=== PATIENT | female | born 1980 | race African-American/Black ===

== ENCOUNTER → 2017-04-12 12:59 | Emergency (ER) | payer BC ==
[~2017-04-12 12:59] MED LIST: Iodixanol* (CONTRAST) 320 MG/ML 100 ML SDV IV ONE; Ketorolac INJ* 30 MG/ML 1 ML VIAL IV PUSH ONE; Ondansetron INJ* 2 MG/ML VIAL IV ONE
[2017-04-12 14:32] LABS: Add Diff/Slide Review? Slide Review Added; Comments Flag Yes; Hematocrit 42 % (35-47); Hemoglobin 14.1 g/dl (12.0-16.0); Mean Corpuscular HGB Conc 34 g/dl (31-36); Mean Corpuscular Hemoglobin 23 pg (27-31); Mean Corpuscular Volume 69 fL (80-97); Mean Platelet Volume 7 um3 (7.4-10.4); Red Blood Count 6.09 10^6/ul (4.0-5.4); Red Cell Distribution Width 17 % (10.5-15); White Blood Count 10.1 10^3/ul (3.5-10.8)
[2017-04-12 14:45] LABS: Albumin 4.1 g/dL (3.2-5.2); BUN/Creatinine Ratio 15.3 (8-20); C Reactive Protein 123.34 mg/L (< 5.00); Calcium 9.6 mg/dL (8.6-10.3); EGFR African American 117.9 (>60); EGFR Non-African American 91.7 (>60); Globulin 3.7 g/dL (2-4); Potassium 3.8 mmol/L (3.5-5.0); Total Bilirubin 0.4 mg/dL (0.2-1.0); Total Protein 7.8 g/dL (6.4-8.9)
[2017-04-12 14:57] LABS: Add Path Review? YES; Hypochromasia 1+; Microcytosis 1+; Target Cells 1+
[2017-04-12 17:52] LABS: Urine Bilirubin Negative (Negative); Urine Glucose 3+(>=500 mg/dL) (Negative); Urine Nitrite Negative (Negative)
--- NOTE | 2017-04-12 18:51 | RAD ---
INDICATION: Abdominal pain. Recent abdominoplasty COMPARISON: CT abdomen pelvis March 30, 2017 TECHNIQUE: Axial source images were obtained from the hemidiaphragms to the symphysis pubis following administration of oral and intravenous contrast. 120 mL Visipaque 320 was utilized. Coronal and sagittal reconstructed images were acquired. Lung bases: The lung bases are clear. Liver: The liver is normal in size. There are no masses. There is no ductal dilatation. Gallbladder: There are no calcified gallstones. There is no evidence of wall thickening or pericholecystic fluid. Spleen: The spleen is normal in size. There are no masses. Pancreas: There is no focal pancreatic mass or ductal dilatation. Adrenal glands: There is no evidence of adrenal mass. Kidneys: The kidneys are normal in size and position. There are prompt nephrograms and there is prompt excretion bilaterally. There are no renal parenchymal masses. There is no evidence of nephrolithiasis. Adenopathy: There is no evidence of adenopathy by size criteria. Fluid collections: There are no free or localized fluid collections. Vessels:There are no significant atherosclerotic changes involving the aorta. There is no focal aneurysm. The iliac vessels are normal in caliber. The IVC appears normal. GI tract: There are no acute CT bowel findings. There is no obstruction. The stomach and small bowel appear normal. The lower GI tract is normal. The cecum, ileocecal valve, and terminal ileum appear normal. The appendix is visualized and appear normal. Pelvic organs: The uterus and adnexa appear normal Bladder: There are no bladder masses. Abdominal and pelvic soft tissues: There are skin and subcutaneous changes compatible with recent abdominal surgery. There is now a localized fluid collection in the subcutaneous soft tissues of the right lateral abdominal/pelvic wall measuring 2.4 x 4.5 x 6.0 cm. This is compatible with postoperative hematoma or seroma. This has developed in the interval. There are additional areas of subcutaneous edema. Osseous structures: There are no acute osseous findings. Other: None IMPRESSION: NEW RIGHT LATERAL SUBCUTANEOUS HEMATOMA/SEROMA. NO ADDITIONAL SIGNIFICANT CHANGES
--- NOTE | 2017-04-12 18:55 | ED ---
Brad Peters Gabriel, scribed for Anabelle Irving MD on 04/12/17 at 1505 . Abdominal Pain/Female - HPI Summary HPI Summary: This patient is a 36 year old F presenting to [facility] with a chief complaint of ABD pain since the 04/04/17. The patient rates the pain 8/10 in severity. Patient reports a minor migraine, ABD distension, and an abnormal ABD bulge. Patient denies n/v/d. Pt states she had a tummy tuck in [place] on December 19 came home 16 days later. She had drainage tubes that resembled Caro catheters. The drain tubes began to pull and she developed E.coli. 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 The E.coli was local to the wound. Even when she had the drains removed at the end of December she was having pain specifically periumbilical pain. She saw her PCP for the pain and had a CT done a week ago, ordered by her PCP and done as an outpt, with the CT results results her PCP scheduled an appointment with a Dr. Ricci, plastic surgeon, but not until April 2017. On 04/08/17 she began having severe flank and rib pain and recently she has developed an abdominal bulge. Patient takes Jardianz for DM. She had a CT ABD/pelvis on 03/30/17 without oral or IV contrast that only showed inflammation of abd wall, and fluid inferior to umbilicus. - History of Current Complaint Chief Complaint: EDAbdPain Stated Complaint: ABD PAIN Time Seen by Provider: 04/12/17 14:53 Hx Obtained From: Patient, Medical Records Hx Last Menstrual Period: NOW ?: No Onset/Duration: Lasting Weeks - 04/04/17, Still Present Timing: Constant Severity Initially: Moderate Severity Currently: Moderate Pain Intensity: 8 Pain Scale Used: 0-10 Numeric Location: Diffuse, Umbilical Radiates: No Character: Dull Aggravating Factor(s): Nothing Alleviating Factor(s): Nothing Associated Signs and Symptoms: Positive: Negative - n/v/d, Other: - minor migraine, ABD distension, and an abnormal ABD bulge Allergies/Adverse Reactions: Allergies Allergy/AdvReac Type Severity Reaction Status Date / Time Oxycodone Allergy Itching Verified 10/30/15 18:50 almonds Allergy Swelling Uncoded 10/30/15 18:50 Of Face,Lips,& Throat PMH/Surg Hx/FS Hx/Imm Hx Previously Healthy: No Endocrine/Hematology History: Reports: Hx Diabetes Cardiovascular History: Denies: Hx Hypertension, Hx Myocardial Infarction Respiratory History: Denies: Hx Asthma Sensory History: Denies: Hx Legally Blind Opthamlomology History: Denies: Hx Cataracts - Surgical History Surgery Procedure, Year, and Place: 2004- knee surgery. 2009- mass removed in axilla areas bilateral. 2012 tonsils. 2017 bariatric surgery in [place] Infectious Disease History: No Infectious Disease History: Denies: Traveled Outside the [place] in Last 30 Days - Family History Known Family History: Positive: Hypertension, Diabetes Negative: Cardiac Disease, Renal Disease, Respiratory Disease - Social History Occupation: Employed Full-time Alcohol Use: Rare Hx Substance Use: No Substance Use Type: Reports: None Hx Tobacco Use: No Smoking Status (MU): Never Smoked Tobacco Review of Systems Negative: Fever Cardiovascular: Negative Respiratory: Negative Positive: Abdominal Pain, Other - ABD distension and an ABD bulge . Negative: Vomiting, Diarrhea, Nausea Genitourinary: Negative Positive: Headache - minor migraine All Other Systems Reviewed And Are Negative: Yes Physical Exam - Summary Physical Exam Summary: Appearance: Well-appearing, no pain distress, Well-nourished Skin: Warm, color reflects adequate perfusion Head: Normal Head/Face Eyes: Conjunctiva clear ENT: Normal appearance Neck: Supple Respiratory: Lungs clear, Normal breath sounds, no respiratory distress Cardio: RRR, No murmur, pulses normal, brisk capillary refill Abdomen: soft, nontender, Mons pubis is swollen but not fluctuant. Tender right lateral abd wall. No definite masses. BS present. Musculoskeletal: Strength Intact/ ROM intact Neuro: Alert, muscle tone normal,facial symmetry, speech normal, sensory/motor intact Triage Information Reviewed: Yes Vital Signs On Initial Exam: Initial Vitals Temp Pulse Resp BP Pulse Ox 97.8 F 119 20 138/90 99 04/12/17 13:03 04/12/17 13:03 04/12/17 13:03 04/12/17 13:03 04/12/17 13:03 Vital Signs Reviewed: Yes Diagnostics - Vital Signs Vital Signs Temp Pulse Resp BP Pulse Ox 04/12/17 13:03 97.8 F 119 20 138/90 99 - Laboratory Lab Results: Lab Results 04/12/17 04/12/17 04/12/17 Range/Units 14:08 14:08 14:08 WBC 10.1 (3.5-10.8) 10^3/ul RBC 6.09 H (4.0-5.4) 10^6/ul Hgb 14.1 (12.0-16.0) g/dl Hct 42 (35-47) % MCV 69 L (80-97) fL MCH 23 L (27-31) pg MCHC 34 (31-36) g/dl RDW 17 H (10.5-15) % Plt Count 258 (150-450) 10^3/ul MPV 7 L (7.4-10.4) um3 Neut % (Auto) 73.0 (38-83) % Lymph % (Auto) 20.3 L (25-47) % Sully % (Auto) 5.6 (1-9) % Eos % (Auto) 0.5 (0-6) % Baso % (Auto) 0.6 (0-2) % Absolute Neuts (auto) 7.3 (1.5-7.7) 10^3/ul Absolute Lymphs (auto) 2.0 (1.0-4.8) 10^3/ul Absolute Monos (auto) 0.6 (0-0.8) 10^3/ul Absolute Eos (auto) 0.1 (0-0.6) 10^3/ul Absolute Basos (auto) 0.1 (0-0.2) 10^3/ul Absolute Nucleated RBC 0.03 10^3/ul Nucleated RBC % 0.3 Normal RBC Morphology Not Reportable Hypochromasia 1+ Microcytosis 1+ Target Cells 1+ Hem Pathologist Commnt Pending INR (Anticoag Therapy) 0.94 (0.77-1.02) APTT 26.3 (26.0-36.3) seconds Sodium 135 (133-145) mmol/L Potassium 3.8 (3.5-5.0) mmol/L Chloride 102 (101-111) mmol/L Carbon Dioxide 27 (22-32) mmol/L Anion Gap 6 (2-11) mmol/L BUN 11 (6-24) mg/dL Creatinine 0.72 (0.51-0.95) mg/dL Est GFR ( Amer) 117.9 (>60) Est GFR (Non-Af Amer) 91.7 (>60) BUN/Creatinine Ratio 15.3 (8-20) Glucose 111 H (70-100) mg/dL Calcium 9.6 (8.6-10.3) mg/dL Total Bilirubin 0.40 (0.2-1.0) mg/dL AST 12 L (13-39) U/L ALT 13 (7-52) U/L Alkaline Phosphatase 52 (34-104) U/L C-Reactive Protein 123.34 H (< 5.00) mg/L Total Protein 7.8 (6.4-8.9) g/dL Albumin 4.1 (3.2-5.2) g/dL Globulin 3.7 (2-4) g/dL Albumin/Globulin Ratio 1.1 (1-3) Lipase 14 (11.0-82.0) U/L Beta HCG, Quant 0.80 mIU/mL Result Diagrams: 04/12/17 14:08 04/12/17 14:08 Lab Statement: Any lab studies that have been ordered have been reviewed, and results considered in the medical decision making process. - CT CT ABD/Pelvis CT Interpretation Completed By: Radiologist - NEW RIGHT LATERAL SUBCUTANEOUS HEMATOMA/SEROMA. NO ADDITIONAL SIGNIFICANT CHANGES ED physician has reviewed this radiology report. Re-Evaluation - Re-Evaluation First Eval Re-Evaluation Time: 19:10 Change: Unchanged - Patient is eating and rates her pain as 7/10. She also still has abd and flank tenderness. Abdominal Pain Fem Course/Dx - Diagnoses Differential Diagnosis: Positive: Bowel Obstruction, Diverticulitis, Other - abscess Provider Diagnoses: seroma/hematoma in right abd wall, S/P bariatric surgery - Provider Notifications Discussed Care Of Patient With: Vladimir Quahc Time Discussed With Above Provider: 19:10 Instructed by Provider To: Have Pt Call For Appt. Discharge - Discharge Plan Condition: Stable Disposition: HOME Prescriptions: HYDROcodone/ACETAMIN 5-325 MG* [[place] 5-325 TAB*] 1 tab PO Q4H PRN #20 tab MDD 6 PRN Reason: Pain Patient Education Materials: Acute Abdominal Pain (ED) Forms: *Work Release Referrals: Vladimir Quach MD [Medical Doctor] - (call in the am to set up an appointment in the next 1-2 days. ) Daisy PATTERSON,Rayna Da Silva [Primary Care Provider] - Additional Instructions: We have given you a copy of your CT report. We have spoken to Dr. Quach, general surgeon, [place]. He will see you in his office in follow up. Call the office first thing tomorrow morning to be seen in the next 1-[address] Quach does not want antibiotics for you at this time. Return to the ER if you have new or worsening symptoms. The documentation as recorded by the Brad bazan Gabriel accurately reflects the service I personally performed and the decisions made by me, Anabelle Irving MD.
[2017-04-12 20:31] VITALS: BP 126/79
== END | disposition home or self-care (01) ==
LOC: ED 12:59
DX: S30.1XXA Contusion of abdominal wall, initial encounter (principal); Z98.84 Bariatric surgery status; R10.9 Unspecified abdominal pain; E13.9 Other specified diabetes mellitus without complications; R51 Headache; X58.XXXA Exposure to other specified factors, initial encounter; Y93.9 Activity, unspecified; Y92.9 Unspecified place or not applicable
CPT/HCPCS: 36415; 74177; 80053; 81003; 83605; 83690; 84702; 85025; 85060; 85610; 85730; 86140; 99284; J1885; J2405; Q9967

== ENCOUNTER 2017-09-07 10:45 | Observation (INO) | payer BC ==
[2017-09-07] MEDS ORDERED: Clindamycin 900 MG IVPREMIX(* 900 MG/50 ML SDV IV ONE (11:30)
[2017-09-07] MEDS ORDERED: Scopolamine 1.5 mg* PATCH ONE (11:41)
[2017-09-07] MEDS ORDERED: Naproxen TAB* 250 MG ONE (11:42)
[2017-09-07] MEDS ORDERED: oxyCODONE SR TAB(*) 10 MG TAB.SR ONE (11:42)
[2017-09-07] MEDS ORDERED: LORazepam TAB(*) 1 MG ONE (11:42)
[2017-09-07] MEDS ORDERED: Ondansetron INJ* 2 MG/ML VIAL ONE (11:42)
[2017-09-07 11:44] LABS: ABS Basophils 0 10^3/ul (0-0.2); ABS Eosinophils 0 10^3/ul (0-0.6); ABS Lymphocytes 1.9 10^3/ul (1.0-4.8); ABS Monocytes 0.3 10^3/ul (0-0.8); ABS Neutrophils 2.9 10^3/ul (1.5-7.7); ABS Nucleated RBC 0 10^3/ul; Eosinophil % 0.9 % (0-6); Hematocrit 47 % (35-47); Lymphocyte % 36.4 % (25-47); Mean Corpuscular HGB Conc 34 g/dl (31-36); Mean Corpuscular Hemoglobin 25 pg (27-31); Mean Corpuscular Volume 74 fL (80-97); Mean Platelet Volume 7.6 um3 (7.4-10.4); Nucleated Red Blood Cells % 0.3; Platelet Count 264 10^3/ul (150-450); Red Blood Count 6.35 10^6/ul (4.0-5.4); Red Cell Distribution Width 16 % (10.5-15); White Blood Count 5.2 10^3/ul (3.5-10.8)
[2017-09-07 11:48] LABS: INR 0.89 (0.77-1.02)
[2017-09-07 11:58] LABS: EGFR Non-African American 66.2 (>60)
[2017-09-07] MEDS ORDERED: Lidocaine 2% JELLY* 6 ML JELLY TOPICAL ONE (12:30)
[2017-09-07] MEDS ORDERED: diPHENhydraMINE PO* 25 MG ONE (12:46)
[2017-09-07] MEDS ORDERED: Flumazenil* 0.1 MG/ML 5 ML MDV ONE (13:14)
[2017-09-07] MEDS ORDERED: Ketorolac INJ* 30 MG/ML 1 ML VIAL ONE ×2 (13:14→15:32)
[2017-09-07] MEDS ORDERED: fentaNYL* 50 MCG/ML 5 ML VIAL (250 MCG VIAL) ONE (13:14)
[2017-09-07] MEDS ORDERED: Midazolam* 1 MG/ML 10 ML VIAL (10 MG) ONE (13:14)
[2017-09-07] MEDS ORDERED: Naloxone* 0.4 MG/ML 1 ML VIAL ONE (13:14)
[2017-09-07] MEDS ORDERED: Iohexol 350 (CONTRAST) 200 ML MDV IV ONE (13:14)
[2017-09-07] MEDS ORDERED: Heparin 2 UNITS/ML IVPREMIX* 2,000 ML IV ONE (13:15)
[2017-09-07] MEDS ORDERED: Lidocaine 1% INJ* 10 MG/ML 30 ML SDV ONE (13:15)
[2017-09-07] MEDS ORDERED: nitroGLYCERIN DRIP* 25,000 MCG/250 ML BTL ONE (14:12)
[2017-09-07] MEDS ORDERED: fentaNYL* 50 MCG/ML 2 ML VIAL (100 MCG VIAL) ONE ×2 (15:20→15:46)
[2017-09-07] MEDS ORDERED: HYDROmorphone PCA* 20 MG/20 ML PCA.SYRING ONE (16:03)
[2017-09-07] MEDS ORDERED: HYDROmorphone INJ* 1 MG/ML CARPUJECT SYRINGE ONE (16:04)
[2017-09-07] MEDS ORDERED: LORazepam INJ* 2 MG/ML 1 ML VIAL IV PUSH PRN ×2 (16:22→21:06)
[2017-09-07] MEDS ORDERED: FAMCICLOVIR 125 MG PO SCH (17:00)
[2017-09-07] MEDS ORDERED: HYDROmorphone PCA* 20 MG/20 ML PCA.SYRING PCA SCH (17:00)
[2017-09-07] MEDS ORDERED: HYDROmorphone INJ* 2 MG/ML CARPUJECT SYRINGE ONE (17:01)
[2017-09-07] MEDS ORDERED: HYDROmorphone INJ* 2 MG/ML CARPUJECT SYRINGE IV SLOW PU PRN (17:02)
--- NOTE | 2017-09-07 17:33 | RAD ---
CPT II Codes: G9500 Procedure(s) performed: * Pelvic arteriogram including the lower abdominal aorta, bilateral iliac arteries including the proximal portions of the superficial femoral arteries and femoral profundi. * Catheter arteriography of the bilateral uterine arteries. * Catheter embolization of the bilateral uterine arteries. Date of service: September 07, 2017 Indication for procedure: Pelvic pain and heavy menstrual bleeding the presence of multiple uterine fibroids Comparison: MR pelvis dated July 12, 2017 Contrast: 200 mL Omnipaque 300 Fluoroscopy Time: 33.1 minutes Vessels Accessed: Percutaneous access was obtained with ultrasound guidance in the right common femoral artery in the retrograde direction towards the heart. Catheter arteriography was performed with the catheter tip in the following arteries: Right external iliac artery, Aorta, Bilateral common iliac arteries, Bilateral internal iliac arteries and Bilateral uterine arteries. Anesthesia: Conscious sedation with IV Fentanyl and Versed as well as local 1% lidocaine injected locally at the arteriotomy site. Conscious sedation time: Timeout: 1340 hours Case end: 1555 hours Total conscious sedation time: 2 hours and 15 minutes Additional medications: * 500 mcg IA nitroglycerin injected intermittently throughout the course of the procedure to alleviate arterial spasm. * Intra-arterial Toradol, 15 mg injected into each uterine artery, for a total of 30 mg intra-arterial. * Intravenous Toradol, 30 mg. * Prior to the procedure the patient received: Ativan 1 mg p.o. Naproxen sodium 250 mg p.o. OxyContin 10 mg p.o. Scopolamine patch 1.5 mg transdermal applied to the mastoid process. Zofran 4 mg IV Antibiotic prophylaxis was provided by Clindamycin 900 mg IV PROCEDURE NOTE AND INTRAPROCEDURAL IMAGING FINDINGS: Immediately prior to the procedure the patient signed consent after thoroughly discussing all risks and benefits. The patient was positioned on the fluoroscopy table in the supine position and the bilateral groins were shaved, prepped and draped in standard sterile fashion. Using fluoroscopic imaging the location of the right common femoral head was marked externally with a skin marker on the patient's groin. Utilizing sonographic guidance and palpation the right common femoral artery was cannulated overlying the right femoral head with an 18-gauge needle. An ultrasound image was saved. A 0.035 inch Bentson wire was slowly and smoothly advanced to the aortic bifurcation under fluoroscopic imaging. No buckling of the wire was visualized to indicate dissection. Over the wire a 5 Niuean sidearm sheath was advanced over the wire under fluoroscopic control until the tip terminating at the right external iliac artery. Injection into the side arm of the access sheath was performed in the left anterior oblique projection demonstrating appropriate access in the right common femoral artery, above the femoral bifurcation but below the branch point of the inferior epigastric artery. Utilizing a 0.035" wire and 5-Niuean C2 catheter the contralateral left common iliac artery was accessed. The wire was advanced under fluoroscopic control to the proximal left superficial femoral artery. The C2 catheter was removed and over the wire a 5 Niuean Merit Impress catheter was advanced over the iliac bifurcation and the reverse curve was formed in the lower abdominal aorta. Utilizing the reverse curve catheter and the wire the ipsilateral right common iliac artery was selected. With the tip of the catheter in the proximal most portion of the right internal iliac artery, angiography was performed to detail the branches of the right internal iliac artery and to locate the ostium of the right uterine artery. Arteriograms in multiple oblique projections were performed to best discern the branch point of the uterine artery. Once the uterine artery was identified, a microcatheter and microwire were advanced into the parent catheter and, in conjunction with contrast angiography, the uterine artery was identified and selected with the microcatheter and wire system. Prior to embolization, contrast injection into the horizontal portion of the uterine artery demonstrated no large, obvious collateral blood flow to the ovary or a definite cervicovaginal branch descending inferiorly. Intra-arterial nitroglycerin was injected intermittently to alleviate arterial spasm. Under fluoroscopic control approximately 2 vials Terumo [place] Pearls 600 microns and 1 vial Terumo [place] Peals 800 microns were slowly injected into the right uterine artery to near complete stasis. Towards the end of embolization 18 mg of Toradol was injected intra-arterially. The microcatheter was pulled back into the more proximal descending portion of the uterine artery and contrast angiography depicted near complete stasis of the uterine artery. The microcatheter and microwire were removed. Contrast arteriography through the 5-Niuean catheter in the right internal iliac artery demonstrated patency and brisk flow through all branches of the internal iliac artery with the exception of the right uterine artery which demonstrates near complete stasis. The 0.035" wire was reinserted into the 5-Niuean catheter and the system was utilized to access the contralateral left internal iliac artery. With the tip of the 5 Niuean Merit Impress catheter in the proximal most portion of the left internal iliac artery, angiography was performed to detail the branches of the left internal iliac artery and to locate the ostium of the left uterine artery. Arteriograms in multiple oblique projections were performed to best discern the branch point of the uterine artery. Once the uterine artery was identified, the microcatheter and microwire were advanced into the parent catheter and, in conjunction with contrast angiography, the uterine artery was identified and selected with the microcatheter and wire system. Prior to embolization, contrast injection into the horizontal portion of the left uterine artery demonstrated no large, obvious collateral blood flow to the ovary or a definite cervicovaginal branch descending inferiorly. Intra-arterial nitroglycerin was injected intermittently to alleviate arterial spasm. Under fluoroscopic control approximately 1 vial Terumo [place] Pearls 600 microns, 1 vial Embospheres 500-700 um and 1 vial Embospheres 700-900 um were slowly injected into the left uterine artery to near complete stasis. Towards the end of embolization 12 mg of Toradol was injected intra-arterially. The microcatheter was pulled back into the more proximal descending portion of the uterine artery and contrast angiography depicted near complete stasis of the uterine artery. The microcatheter and microwire were removed. Contrast arteriography through the 5-Niuean catheter in the left internal iliac artery demonstrated patency and brisk flow through all branches of the internal iliac artery with the exception of the left uterine artery which demonstrates near complete stasis. The 5-Niuean catheter and 0.035" wire were utilized to access the left external iliac artery which allowed a safe removal of the 5-Niuean Impress catheter. The wire was then removed from the sheath. The access sheath was removed and pressure was held at the common femoral arteriotomy for approximately 15 minutes. There were no signs of bleeding at the right groin access site and the site was dressed with sterile gauze and Tegaderm. The patient tolerated the procedure well and was transferred to the short stay recovery unit in stable condition for routine overnight observation and pain and nausea control. SUMMARY OF PROCEDURE, IMAGING FINDINGS AND INTERVENTIONS PERFORMED: 1. Diagnostic studies performed: * Arterial access was obtained at the right common femoral artery in the retrograde direction (i.e. towards the heart) with ultrasound guidance. A sonographic image was recorded. * Diagnostic catheter angiography (necessary to perform the appropriate interventions) was performed with the catheter tip in the right external iliac artery, aorta, bilateral common iliac arteries, bilateral internal iliac arteries and bilateral uterine arteries. * Catheter arteriography was performed of the abdominal aorta, bilateral iliac arterial system and specifically the bilateral uterine arteries. 2. Interpretation of diagnostic studies performed: * Left greater than right hypertrophied uterine arteries providing flow to the patient's enlarged fibroid uterus. 3. Surgical interventions performed: * Near stasis embolization of the bilateral uterine arteries utilizing: * Right Uterine Artery: 2 vials Terumo [place] Pearls 600 microns 1 vial Terumo [place] Pearls 800 microns. * Left Uterine Artery: 1 vial Terumo [place] Pearls 600 microns, 1 vial Embospheres 500-700 um and 1 vial Embospheres 700-900 um. 4. Interpretation of interventions performed: * Final arteriography demonstrated near complete stasis of the bilateral uterine arteries.. PLAN: 1. The patient will be admitted to short stay surgical unit for routine overnight observation including pain and nausea control. 2. Outpatient clinical and imaging follow-up according to the Interventional Radiology protocol.
--- NOTE | 2017-09-07 18:15 | PN ---
Progress Note - Progress Note Date of Service: 09/07/17 SOAP: Subjective: Reports pain is 4/10, but as bad as 9/10 sometimes. Clear yellow urine in Caro bag Denies nausea, no emesis. Wants to eat. Objective: Selected Entries 09/07/17 17:17 Pulse Rate 67 Heart Rate 67 Respiratory 12 Rate Blood Pressure 138/79 (mmHg) Blood Pressure 118 Mean O2 Sat by Pulse 99 Oximetry NAD, Somnolent, but arousable to voice Abdomen is soft, but tender to deep palpation over the suprapubic area Right groin is soft, nontender Dressing is CDI 2+ pulses at right BATCHMAKER, pop, DPA and FIREWALL ENGINEER RLE is neuromuscular intact Assessment: 37 YOF s/p Uterine Artery Embolization with nausea well controlled and pain reasonably controlled. Plan: 1. Standard post [place] Interventional Radiology protocol with the following additions: Add Dilaudid 1 mg IV Q 4 hours PRN for breakthrough pain. Add Ativan 0.5 mg IV Q 8 hours PRN anxiety. 2. Diet, advance slowly. 3. Head of bed may come up 30 degrees during bedrest periods which ends at 2000 hours.
[2017-09-07] MEDS ORDERED: LORazepam INJ* 2 MG/ML 1 ML VIAL ONE (21:10)
[2017-09-07] MEDS: Ketorolac INJ* 15 MG/ML 1 ML VIAL IV PUSH SCH (21:43)
[2017-09-07] MEDS: Ondansetron 40 MG VIAL* 2 MG/ML 20 ML VIAL IV SCH (21:43)
--- NOTE | 2017-09-08 01:05 | HP ---
CC: Dr. Juan Godoy; Dr. Benjy Mercedes * HISTORY AND PHYSICAL: DATE OF ADMISSION: 09/07/17 PRIMARY CARE PROVIDER: Dr. Hoover. (Dr. Benjy Mercedes manages her DM only) ATTENDING PHYSICIAN: Dr. Hi Valdez * (dictated by Melissa Osorio NP) . CHIEF COMPLAINT: Menorrhagia. HISTORY OF PRESENT ILLNESS: Ms. Simon is a 37-year-old female with past medical history significant for diabetes mellitus type 2 and known uterine fibroids, who was referred to Interventional Radiology for evaluation of her symptoms of multiple uterine fibroids. The patient reports severe menstrual pain beginning as a child in middle school with heavy bleeding. During her adult life, she was taking oral contraceptive pills to minimize the pain and bleeding associated with her menses, but over the last year that has become ineffective. The patient was finding that even with a double dose of her oral contraceptive pills that she was having minimum relief of her symptoms since March 2017. She was having significant pelvic pain the week of her menses with lesser pain throughout the month. The patient was taking 800 mg of Motrin 1 to 2 times daily with some relief of her pain. The patient reported passing clots the size of grapes with bleeding lasting up to 2 weeks needing to change a 12-hour menstrual pad every 2 hours including overnight. She was also reporting dyspareunia. She denied any urinary bladder or bowel symptoms. Due to all of these symptoms, she was referred to Dr. Godoy for possible uterine fibroid embolization. The patient presented to the hospital today for an elective uterine fibroid embolization with Dr. Juan Godoy. She states that leading up to her procedure today, she has been in her usual state of health. She denies any fever , chills, chest pain, shortness of breath, nausea, vomiting, diarrhea, urinary symptoms. The hospitalists were asked to admit the patient post uterine fibroid embolization. PAST MEDICAL HISTORY: 1. Diabetes mellitus. 2. Uterine fibroids. PAST SURGICAL HISTORY: 1. Status post knee surgery in 2004. 2. Status post tonsillectomy in 2012. 3. Status post excision of a lipoma bilateral axillae in 2009. 4. Status post abdominoplasty in 2016. HOME MEDICATIONS: Include: 1. Bupropion ER 100 mg oral daily. 2. Ogestrel 0.5/50 mg/mcg 2 tablets oral daily, the patient stopped taking on 09/02/17. 3. Jardiance 100 mg oral daily. 4. Belviq XR 20 mg oral daily. 5. Famciclovir 250 mg oral daily, increase to 4 tablets daily for outbreak. ALLERGIES: OXYCODONE causes itching. FAMILY HISTORY: The patient's mother has a history of coronary artery disease, diabetes mellitus. She denies any family history of cancer. SOCIAL HISTORY: The patient denies tobacco use. She rarely drinks alcohol. Denies recreational drug use. Her mother, Tereza Coleman, will be her surrogate decision maker in the event she is unable to make decisions for herself. REVIEW OF SYSTEMS: I performed an 11-point review of systems. All the pertinent positives and negatives are mentioned in the history of present illness. The remaining review of systems are negative. PHYSICAL EXAMINATION GENERAL APPEARANCE: The patient is alert, pleasant and appears to be in no acute distress. VITAL SIGNS: Temperature 97.5, heart rate 81, respiratory rate 15, O2 sat 97% on room air, blood pressure 155/92. HEENT: Normocephalic, atraumatic. Pupils are equal and reactive to light. Extraocular movements are intact. RESPIRATORY: There is no accessory muscle use. The lungs are clear to auscultation bilaterally. CARDIOVASCULAR: Regular rate and rhythm. S1 and S2 present. There are no murmurs, rubs, or gallops heard. ABDOMEN: Soft, nontender, and nondistended. There are bowel sounds present x4. EXTREMITIES: There is no lower extremity edema. DP and PT pulses are 2+ and symmetric. MUSCULOSKELETAL: There is no clubbing or cyanosis noted. The patient exhibits good strength in all extremities. NEUROLOGICAL: The patient is alert and oriented x4, but drowsy. Cranial nerves II through XII are grossly intact. PSYCHOLOGICAL: The patient is calm and cooperative. SKIN: There are no rashes or abnormalities seen. DIAGNOSTIC STUDIES/LABORATORY DATA: Sodium 137, potassium 3.9, chloride 104, CO2 of 25, BUN 15, creatinine 0.95, glucose 95. White blood cell count 5.2, hemoglobin 16.0, hematocrit 47, platelet count 264. IMPRESSION: Ms. Simon is a 37-year-old female with past medical history significant for diabetes mellitus type 2 and uterine fibroids, who presented to the hospital today for an elective uterine fibroid embolization with Dr. Juan Godoy. She will be admitted as an observation status post uterine fibroid embolization. ASSESSMENT/PLAN: 1. Uterine fibroids. The patient is status post uterine fibroid embolization and the patient will have management per Dr. Godoy. She will have pain control including a SHOCK ABSORPTION FLOOR LAYER and breakthrough intravenous Dilaudid in addition to a Caro catheter and bedrest until 8 p.m. tonight at which time she can get up and ambulate and her Caro catheter can be removed. 2. Diabetes mellitus. We are going to hold the patient's Jardiance while she is in the hospital. I am going to follow her glucoses and start lispro if she has elevated glucoses. She will be consistent carbohydrate diet. 3. Fluids, electrolytes and nutrition. The patient will have LR at 200 mL an hour overnight and she will be on a consistent carbohydrate diet. 4. Code status. Full code. 5. DVT prophylaxis. She is low risk and will have SCDs until she is ambulating and then she will be encouraged to ambulate. 6. Disposition. Observation. TIME SPENT: Time for this admission was approximately 60 minutes, greater than half of that was spent [id number] with the patient discussing medications, past medical history, the events leading up to her arrival today, and performing a physical examination. The case has been reviewed with the attending, Dr. Valdez, who agrees with the plan of care. Reviewed by VIRA THOMPSON 09/09/17 2109 [id number]/[facility] #: [id number] AWAIS
[2017-09-08] MEDS: Ondansetron 40 MG VIAL* 2 MG/ML 20 ML VIAL IV SCH (04:02)
[2017-09-08] MEDS: Ketorolac INJ* 15 MG/ML 1 ML VIAL IV PUSH SCH (04:02)
--- NOTE | 2017-09-08 08:22 | PN ---
Progress Note - Progress Note Date of Service: 09/08/17 SOAP: Subjective: Episodes of 8/10 pain overnight, but currently controlled 2/10. Reports +emesis overnight, but no nausea right now. Wants breakfast. + ambulating to bathroom for +void Objective: Selected Entries 09/08/17 07:27 Temperature 97.9 F Temperature Oral Source Pulse Rate 93 Respiratory 16 Rate Blood Pressure 121/80 (mmHg) Blood Pressure 90 Mean O2 Sat by Pulse 98 Oximetry NAD, Somnolent, but arousable to voice Abdomen is soft, tender to palpation over low midline pelvis Right groin is soft and nontender Dressing is CDI 2+ pulses DRAFTER DIRECTIONAL SURVEY, pop, DPA and BASE PLY HAND RLE neuromuscular intact grossly Assessment: 37 YOF POD #1 s/p Uterine Fibroid Embolization with episode of emesis overnight , but nausea and pain are currently controlled. Emesis likely secondary to eating too much, too quickly (patient ate meatloaf and mashed potatoes). Plan: 1. Transition IV to PO pharmacotherapy. 2. D/C IVF. 3. Ambulate with assistance every 2 hours. 4. Patient advised to advance diet slowly.
[2017-09-08] MEDS ORDERED: HYDROcodone/ACETAMIN 5-325 MG* 1 TAB PO PRN (08:25)
[2017-09-08] MEDS ORDERED: buPROPion SR TAB.SR* 100 MG PO SCH (09:00)
[2017-09-08] MEDS: Ketorolac TAB * 10 MG TAB PO SCH ×2 (09:11→14:59)
[2017-09-08] MEDS: Prochlorperazine TAB* 10 MG PO SCH ×3 (09:11→14:59)
--- NOTE | 2017-09-08 12:52 | PN ---
Progress Note - Progress Note Date of Service: 09/08/17 SOAP: Subjective: Patient sleeping quietly when I arrived. Pain "comes and goes", but is 2/10 right now. No emesis since last night. Ate light breakfast without issue. No nausea. Tolerating pills. Has ambulated several times. Light vaginal spotting. Objective: Selected Entries 09/08/17 09/08/17 09/08/17 07:27 08:00 11:38 Temperature 97.9 F Temperature Oral Source Pulse Rate 93 Respiratory 16 Rate Blood Pressure 121/80 (mmHg) Blood Pressure 90 Mean O2 Sat by Pulse 97 Oximetry Groins is soft, NT. Dressing CDI Abdomen soft, but tender to deep palpation Assessment: 37 YOF POD #1 s/p Uterine Fibroid Embolization with pain and nausea well controlled. Plan: 1. Anticipate discharge to home tonight when her boyfriend is due to arrive around 9pm. 2. Routine Interventional Radiology follow up will include RN clinic follow up telephone calls 09/11/17 and 09/16/17. Follow up in the IR clinic in 6 weeks and 6 months. 3. Outpatient Rx regimen will include: Toradol 10 mg PO Q 6 hours x 3 days, dispense #15, 1 refill AFTER 3 days of Toradol, start Ibuprofen 600 mg PO every 6 hours x 3 days (DO NOT COMBINE IBUPROFEN AND TORADOL) [place] 5/325 take 1 or 2 tablets PO Q 6 hours PRN x 5 days, dispense #30 (thirty), no refills Ativan 1 mg PO Q 8 hours PRN x 5 days, dispense #20 (twenty) Compazine 10 mg PO Q 6 hours x 5 days, dispense #30, 1 refill Scopoloamine 1.5 mg TD patch: on the morning of Monday, replace current patch with new patch and wear x 3 days 4. Patient advised to purchase laxative tea (E.g. Smooth Move) and drink one cup daily x 1 week to avoid constipation. (Dr. Godoy helped patient text her boyfriend to specifically cloth picker a box of tea on his way to the hospital).
[2017-09-08 13:51] VITALS: BP 120/83
--- NOTE | 2017-09-08 16:48 | PN ---
Subjective Date of Service: 09/08/17 Interval History: Patient seen and examined at bedside. Denies fever, chills, shortness of breath , chest discomfort, N/V/D. Pt states that she has a significant amount of abdominal cramping, but would like to go home today. She reports light vaginal bleeding. Family History: Unchanged from Admission Social History: Unchanged from Admission Past Medical History: Unchanged from Admission Objective Active Medications: Hydrocodone Bitart/Acetaminophen (Sutton 5-325 Tab*) 2 tab PO Q6H PRN Reason: PAIN Bupropion HCl (Wellbutrin Sr Tab*) 100 mg PO DAILY DERRICK Famciclovir (Famvir Tab(Nf)) 250 mg PO .SEE INSTRUCTIONS DERRICK Hydromorphone HCl (Dilaudid Inj*) 1 mg IV SLOW PU Q4H PRN Reason: PAIN - SEVERE Ketorolac Tromethamine (Toradol Tab *) 10 mg PO Q6H [facility] Stop: 09/11/17 08:59 Lorazepam (Ativan Inj*) 1 mg IV PUSH Q8H PRN Reason: ANXIETY Prochlorperazine (Compazine Tab*) 10 mg PO Q6HR [facility] Stop: 09/13/17 08:59 Vital Signs - 8 hr 09/08/17 09/08/17 09/08/17 08:52 11:15 11:38 Temperature 98.0 F Pulse Rate 90 Respiratory 16 17 16 Rate Blood Pressure 120/83 (mmHg) O2 Sat by Pulse 100 Oximetry Oxygen Devices in Use Now: None, Nasal Cannula Appearance: NAD, laying in bed Ears/Nose/Mouth/Throat: Mucous Membranes Moist Respiratory: Symmetrical Chest Expansion and Respiratory Effort, Clear to Auscultation Cardiovascular: NL Sounds; No Murmurs; No JVD, RRR Abdominal: NL Sounds; No Tenderness; No Distention Extremities: No Edema Skin: No Rash or Ulcers Neurological: Alert and Oriented x 3, NL Muscle Strength and Tone Lines/Tubes/Other Access: Clean, Dry and Intact Peripheral IV - site benign Nutrition: Taking PO's Result Diagrams: 09/07/17 11:15 09/07/17 11:15 Assess/Plan/Problems-Billing Assessment: Ms. Jones is a 37 yo female with PMH significant for DM and uterine fibroids who underwent an elective UFE with Dr. Godoy. - Patient Problems (1) Uterine fibroid Code(s): D25.9 - LEIOMYOMA OF UTERUS, UNSPECIFIED SNOMED Code(s): 85494775 Comment: - S/P UFE, POD #1 - Continues to have pain, but requesting to go home - Plan for pain management at home (2) Diabetes Code(s): E11.9 - TYPE 2 DIABETES MELLITUS WITHOUT COMPLICATIONS SNOMED Code(s) : 88293321 Comment: - Glucose 80-150's - Continue home medications (3) DVT prophylaxis Code(s): VWL6034 - SNOMED Code(s): 874740460 (4) Full code status Code(s): Z78.9 - OTHER SPECIFIED HEALTH STATUS SNOMED Code(s): 093526732 Status and Disposition: OBV. Stable for discharge to home today.
--- NOTE | 2017-09-09 06:59 | DS ---
CC: Dr. Juan Godoy; Dr. Benjy Mercedes * DISCHARGE SUMMARY: DATE OF ADMISSION: 09/07/17 DATE OF DISCHARGE: 09/08/17 ATTENDING PHYSICIAN: Dr. Hi Valdez * (dictated by Melissa Osorio NP) . PRIMARY CARE PROVIDER: Dr. Benjy Mercedes. PRIMARY DIAGNOSIS: Uterine fibroids, status post uterine fibroid embolization. SECONDARY DIAGNOSIS: Diabetes. CONSULTATIONS WHILE IN THE HOSPITAL: Dr. Juan Godoy. PROCEDURES WHILE IN THE HOSPITAL: Status post uterine fibroid embolization on 09/[address] Juan Godoy. DISCHARGE MEDICATIONS: [place] Medications: 1. Toradol 10 mg oral every 6 hours for 3 days. 2. Ibuprofen 600 mg oral every 6 hours for 3 days after the 3 days of Toradol. 3. Com[place] 5/325 one or two tablets oral every 6 hours as needed for pain for 5 days. 4. Ativan 1 mg oral every 8 hours as needed for anxiety. 5. Compazine 10 mg oral every 6 hours for 5 days. 6. Scopolamine patch 1.5 mg patch, replace current patch on 09/10/17 and wear for 3 days. 7. Smooth Move laxative tea drink 1 cup daily for 1 week. Continued Home Medications: 1. Jardiance 10 mg oral daily. 2. Famvir 250 mg oral daily, increase to 4 tablets daily with outbreak. 3. Belviq XR 20 mg oral daily. 4. Wellbutrin SR 100 mg oral daily. Medications discussed with provider: Jad. HISTORY OF PRESENT ILLNESS: Ms. Simon is a 37-year-old female with past medical history significant for diabetes and uterine fibroids who presented to the hospital for an elective uterine fibroid embolization with Dr. Godoy on . The patient underwent a successful uterine fibroid embolization on 09/07 and spent a night overnight. Patient continued to have pain and some nausea but is feeling up to going home today and she has had an uneventful recovery. Ms. Simon is stable for discharge to home today. Vital signs are as follows : Temperature 98, heart rate 90, respiratory rate 17, O2 sat 100% on room air, blood pressure 120/83. DISCHARGE PLAN: Ms. Simon will be discharged to home. Activity as tolerated. She will be on a regular diet. As far as pain control, she will be on Toradol 10 mg oral every 6 hours for 3 days followed by ibuprofen 600 mg oral every 6 hours for 3 days. She has been instructed to not combine ibuprofen and Toradol. She will be continued on [place] 5/325 one or two tablets oral every 6 hours as needed for pain for 5 days. She will have Ativan 1 mg oral every 8 hours as needed for anxiety. I-STOP was checked with reference number [id number]. She will have Compazine 10 mg oral every 6 hours for 5 days and scopolamine patch in place and she will replace the current patch on Monday and replace it with a new and wear it for 3 days. She has been asked to drink Smooth Move tea 1 cup daily for one week to avoid constipation. She should follow up with her primary care provider as needed. She has been continued on her other usual home medications. She will receive followup radiology calls from nurse on 09/11/17 and Monday09/16/17. She will then have to follow up with Dr. Godoy in 6 weeks and 6 months. She has been provided post uterine fibroid embolization specific instructions also. She has been asked to return to the emergency room for any chest pain, shortness of breath. She has been asked to call Dr. Godoy or her hide house supervisor for any foul smelling vaginal discharge especially if it is accompanied by fever, chills, pelvic pain. She has been asked to return to the emergency room for any chest pain, shortness of breath. This is a summarized report of a complex medical history and hospital stay. For further details, please see the entire medical record. BARTOLO SPENT: Time for this discharge was approximately 50 minutes, greater than half of that was spent with the patient, discussing discharge plans and instructions. CONDITION ON DISCHARGE: Stable. Reviewed by VIRA THOMPSON 09/09/17 2103 [id number]/[facility] #: [id number] AWAIS
== END 2017-09-08 18:10 | disposition home or self-care (01) ==
LOC: CHICATH 10:45 → SSU 16:32
PROVIDERS: ADMIT Radiology Diagnostic Radiology; ATTEND Internal Medicine
DX: D25.9 Leiomyoma of uterus, unspecified (principal); E11.9 Type 2 diabetes mellitus without complications; N92.0 Excessive and frequent menstruation with regular cycle
CPT/HCPCS: 36415; 37243; 75736; 76937; 80048; 84702; 85025; 85610; 99156; 99157; A9270-GY; C1769; C1884; C1887; G0378; J1170; J1644; J1885; J2060; J2250; J2310; J2405; J3010; Q0164

== ENCOUNTER 2019-06-10 18:52 | Emergency (ER) | payer BC ==
--- OUTSIDE RECORDS SUMMARY | 2019-06-10 18:59 | XMS REPORT | Continuity of Care Document ---
:1980 External Reference #:[id number] Author Name Adeline Ortega M.D. (transmitted by agent of provider Adeline Antunez ) Address [address] [place] [address] [place] [address] Care Team Providers Name Role Phone Benjy Mercedes MD - Endocrinology, Care Team Information [employer] [phone] Diabetes & Metabolism Problems Active Problems Provider Date Uterine leiomyoma Juan Godoy M.D. Onset: 06/21/2017 Premenopausal menorrhagia Juan Godoy M.D. Onset: 11/08/2017 Social History Type Date Description Comments Sex Unknown Tobacco Use Start: Unknown Never Smoked Cigarettes Smoking Status Reviewed: 05/16/19 Never Smoked Cigarettes ETOH Use Rarely consumes alcohol Tobacco Use Start: Unknown Patient has never smoked Recreational Drug Use Denies Drug Use Exercise Type/Frequency Exercises regularly gym 4-5 days a week Allergies, Adverse Reactions, Alerts Active Allergies Reaction Severity Comments Date Oxycodone itching 04/13/2017 Medications Active Medications SIG Qnty Indications Ordering Date Provider Modafinil 1 tab in the 30tabs Radha Zari, 11/05/2018 100mg Tablets morning, pls read leaflet Mandibular please fabricate Adeline 11/05/2018 Advancement Device mandibular advance MAURI Talamantes device for sleep Device apnea Ciprofloxacin HCL 1 tab by mouth 6tabs Z71.9 David D. 09/13/2018 500mg twice a day if Heena Noble Tablets needed for diarrhea Atovaquone-Proguanil 1 tab by mouth 30tabs Z71.9 David D. 09/13/2018 HCL daily, 2 days Heena Noble 250-100mg Tablets before trip, each day there, 7 days after return Famciclovir 1 daily, increase Unknown 250mg to 4 tabs daily Tablets for outbreak Fluoxetine HCL 1 by mouth every Unknown 40mg day Capsules Medications Administered in Office Medication SIG Qnty Indications Ordering Provider Date Depomedrol 40MG Stan Darling MD 08/09/2018 Injection Immunizations CPT Code Status Date Vaccine Lot # [id number] Given 09/13/2018 Typhoid Vaccine [id number] Given 09/13/2018 Rabies Vaccine Intramuscular [id number] Given 09/13/2018 Hepatitis A Vaccine Adult Dosage [id number] Vital Signs Date Vital Result Comment 05/16/2019 8:59am Height 70 inches 5'10" Heart Rate 102 /min BP Systolic 142 mmHg BP Diastolic 82 mmHg Respiratory Rate 18 /min Pain Level 10 O2 % BldC Oximetry 98 % 10/02/2018 12:45pm Height 70 inches 5'10" Weight 206.00 lb per pt, declined weight Heart Rate 92 /min BP Systolic Sitting 128 mmHg Lue large cuff BP Diastolic Sitting 98 mmHg Lue large cuff Respiratory Rate 18 /min O2 % BldC Oximetry 97 % On Ra BMI (Body Mass Index) 29.6 kg/m2 Results Description No Information Available Procedures Date Code Description Status 05/16/2019 Injection, Carpal Tunnel Completed Medical Devices Description No Information Available Encounters Description No Information Available Assessments Date Code Description Provider 05/16/2019 G56.01 Carpal tunnel syndrome, right upper limb Adeline Ortega M.D. 05/16/2019 G56.02 Carpal tunnel syndrome, left upper limb Adeline Ortega M.D. Plan of Treatment 05/16/2019 - Adeline Ortega M.D.G56.01 Carpal tunnel syndrome, right upper limbFollow up:Follow up: after testing is rpitequofB19.02 Carpal tunnel syndrome, left upper limbNew Orders:EMG w/Nerve Conduct Study, Upper, Ordered: 05/16/19Follow up:Follow up: Functional Status Description No Information Available Mental Status Description No Information Available Referrals Description No Information Available
[2019-06-10] MEDS ORDERED: Albuterol 2.5 MG/3 ML NEB.SOL* (0.083%) INH ONE ×3 (19:12→20:26)
[2019-06-10] MEDS ORDERED: Ipratropium 0.5MG/2.5ML NEB* 0.5 MG/2.5 ML NEB.SOLN INH ONE ×2 (19:12→20:26)
--- NOTE | 2019-06-10 19:56 | UC ---
Respiratory Complaint HPI - HPI Summary HPI Summary: The patient is a 39-year-old female with a week to week and half history of progressively worsening wheezing and shortness of breath. She hasn't asthmatic. She has recently traveled to some countries with very favian environments. She did not have an inhaler with her. While in [place] she did purchase an inhaler but has not given her any relief. She has also had diarrhea for approximately a week. She denies any fever or chills. She denies any calf pain or swelling. - History of Current Complaint Chief Complaint: UCRespiratory Stated Complaint: ASTHMA Time Seen by Provider: 06/10/19 19:00 Hx Obtained From: Patient Hx Last Menstrual Period: 06/03/19 Onset/Duration: Gradual Onset, Lasting Days Timing: Constant Severity Initially: Mild Severity Currently: Moderate Pain Intensity: 7 Pain Scale Used: Adult Non Verbal Character: Cough: Nonproductive Aggravating Factors: Allergens, Exertion Alleviating Factors: Nothing Associated Signs And Symptoms: Positive: Wheezing. Negative: Nasal Congestion, Hoarseness, Sinus Discomfort - Allergies/Home Medications Allergies/Adverse Reactions: Allergies Allergy/AdvReac Type Severity Reaction Status Date / Time almond Allergy Severe Swelling Verified 06/10/19 19:01 Of Face,Lips,& Throat oxycodone Allergy Intermediate Itching Verified 06/10/19 19:01 Home Medications: Home Medications Acyclovir* [Zovirax 200 MG CAP*] 06/10/19 [History] FLUoxetine CAP* [Prozac CAP*] 06/10/19 [History] Modafinil TAB* [Provigil TAB*] 100 mg PO DAILY 06/10/19 [History Confirmed 06/10] Mometasone Furoate [Asmanex Hfa] PRN 06/10/19 [History] Ondansetron ODT TAB* [Zofran 4 MG Odt TAB*] 4 mg PO PRN 06/10/19 [History] ZOLMitriptan [Zomig] 06/10/19 [History] lamoTRIgine TAB(*) [LaMICtal TAB(*)] 100 mg PO DAILY 06/10/19 [History Confirmed 06/10/19] PMH/Surg Hx/FS Hx/Imm Hx Previously Healthy: Yes Respiratory History: Asthma, Bronchitis - Surgical History Surgical History: Yes Surgery Procedure, Year, and Place: 2004- knee surgery RIGHT. 2009- mass removed in axilla areas bilateral. 2012 tonsils. 2017 TUMMY TUCK surgery in [place]. 08/2017 EMBOLIZATION. 11/2018 breast reduction - Family History Known Family History: Positive: Hypertension, Diabetes Negative: Cardiac Disease, Renal Disease, Respiratory Disease - Social History Alcohol Use: None Substance Use Type: None Smoking Status (MU): Never Smoked Tobacco Review of Systems All Other Systems Reviewed And Are Negative: Yes Constitutional: Positive: Negative Skin: Positive: Negative Eyes: Positive: Negative ENT: Positive: Negative Respiratory: Positive: Shortness Of Breath, Cough Cardiovascular: Positive: Negative Gastrointestinal: Positive: Diarrhea Genitourinary: Positive: Negative Motor: Positive: Negative Neurovascular: Positive: Negative Musculoskeletal: Positive: Negative Neurological/Mental Status: Positive: Negative Psychological: Positive: Negative Physical Exam Triage Information Reviewed: Yes Appearance: Well-Nourished, Other: - increased work of breathing Vital Signs: Initial Vital Signs Temp 97.7 F 06/10/19 18:55 Pulse 100 06/10/19 18:55 Resp 20 06/10/19 18:55 BP 120/90 06/10/19 18:55 Pulse Ox 100 06/10/19 18:55 Vital Signs Reviewed: Yes ENT: Positive: Hearing grossly normal. Negative: Nasal congestion, Nasal drainage, Tonsillar swelling, Tonsillar exudate, Muffled voice, Hoarse voice Neck: Positive: Supple, Nontender, No Lymphadenopathy Respiratory: Positive: Respiratory distress, Decreased breath sounds, Accessory muscle use. Negative: Wheezing, Expiration Cardiovascular: Positive: RRR, No Murmur Abdomen Description: Positive: Nontender, No Organomegaly, Soft. Negative: CVA Tenderness (R), CVA Tenderness (L) Bowel Sounds: Positive: Present Musculoskeletal: Positive: ROM Intact, No Edema Neurological: Positive: Alert Psychological Exam: Normal Skin Exam: Normal Diagnostics - Radiology No standard instances Radiology Interpretation Completed By: ED Physician Summary of Radiographic Findings: NAD Re-Evaluation - Re-Evaluation First Eval Re-Evaluation Time: 20:07 Change: Improved - minimal improvement/still tight Second Eval Re-Evaluation Time: 20:25 Change: Improved - minimal improvement/wtill with increased WOB Third Eval Re-Evaluation Time: 21:05 Change: Improved - only minimal now improvement still tachycardic/coughs with each breath Respiratory Course/Dx - Course Course Of Treatment: Pt with little improvement with nebs paucity of wheezing PEFR 350-400 I explained to patient that I felt that due to her recent travel see needed further eval to R/O at she is aware it is potentially fatal she refuses EMS transfer She states she has to let her dog out then will procede to [facility] er - Differential Dx/Diagnosis Differential Diagnosis/HQI/PQRI: Asthma - status astmaticu, Bronchitis, Pulmonary Embolism Provider Diagnosis: Respiratory distress Discharge ED - Sign-Out/Discharge Documenting (check all that apply): Patient Departure All imaging exams completed and their final reports reviewed: No - Discharge Plan Condition: Guarded Disposition: AGAINST MEDICAL ADVICE Referrals: Benjy Mercedes MD [Primary Care Provider] - Additional Instructions: Patient advised to go to ER via EMS she is aware if risks - Billing Disposition and Condition Condition: GUARDED Disposition: Against Medical Advice
[2019-06-10 20:28] VITALS: BP 139/94
--- NOTE | 2019-06-11 07:40 | UC ---
- Progress Note Progress Note: RADIOLOGY REPORT REVIEWED. NO EVIDENCE FOR ACTIVE CARDIOPULMONARY DISEASE. NO CHANGE IN MGMT. Course/Dx - Diagnoses Provider Diagnoses: Respiratory distress Discharge ED - Sign-Out/Discharge Documenting (check all that apply): Post-Discharge Follow Up All imaging exams completed and their final reports reviewed: Yes - Discharge Plan Condition: Guarded Disposition: AGAINST MEDICAL ADVICE Referrals: Benjy Mercedes MD [Primary Care Provider] - Additional Instructions: Patient advised to go to ER via EMS she is aware if risks - Billing Disposition and Condition Condition: GUARDED Disposition: Against Medical Advice
== END 2019-06-10 21:10 | disposition left against medical advice (07) ==
LOC: UCEAST 18:52
DX: R06.03 Acute respiratory distress (principal); J45.909 Unspecified asthma, uncomplicated; R19.7 Diarrhea, unspecified; Z88.6 Allergy status to analgesic agent; Z91.018 Allergy to other foods
CPT/HCPCS: 71046; 99213; G0463; J7512

== ENCOUNTER 2019-06-10 23:24 | Emergency (ER) | payer BC ==
[2019-06-10] MEDS ORDERED: Benzonatate CAP* 100 MG PO ONE (23:56)
[2019-06-10] MEDS ORDERED: Magnesium Sulfate 2 GM IV* 2 GM/50 ML BAG IVPB ONE (23:56)
[2019-06-11 00:37] LABS: ABS Lymphocytes 0.9 10^3/ul (1.0-4.8); ABS Monocytes 0.1 10^3/ul (0-0.8); ABS Neutrophils 6.8 10^3/ul (1.5-7.7); Hematocrit 38 % (35-47); Hemoglobin 13.2 g/dL (12.0-16.0); Mean Corpuscular HGB Conc 35 g/dL (31-36); Mean Corpuscular Hemoglobin 27 pg (27-31); Mean Corpuscular Volume 77 fL (80-97); Mean Platelet Volume 6.7 fL (7.4-10.4); Platelet Count 260 10^3/uL (150-450); Red Blood Count 4.97 10^6 /uL (3.70-4.87); Red Cell Distribution Width 15 % (10-15); White Blood Count 7.8 10^3/uL (3.5-10.8)
[2019-06-11] MEDS ORDERED: Ketorolac INJ* 30 MG/ML 1 ML VIAL IV PUSH ONE (00:41)
[2019-06-11] MEDS ORDERED: guaiFENesin/CODIENE 100mg/10mg 5 ML UDC PO ONE (00:47)
[2019-06-11 00:55] LABS: Albumin 4.1 g/dL (3.2-5.2); Anion Gap 16 mmol/L (2-11); CO2 Carbon Dioxide 19 mmol/L (22-32); Calcium 9.2 mg/dL (8.6-10.3); Chloride 100 mmol/L (101-111); Magnesium 1.8 mg/dL (1.9-2.7); Potassium 3.7 mmol/L (3.5-5.0); Sodium 135 mmol/L (135-145)
[2019-06-11 00:58] LABS: Troponin I 0.01 ng/mL (<0.03)
[2019-06-11 01:01] LABS: ALT 22 U/L (7-52); AST 17 U/L (13-39); Albumin/Globulin Ratio 1.3 (1-3); Alkaline Phosphatase 66 U/L (34-104); BUN/Creatinine Ratio 15.9 (8-20); Blood Urea Nitrogen 14 mg/dL (6-24); EGFR African American 86.6 (>60); EGFR Non-African American 71.5 (>60); Globulin 3.1 g/dL (2-4); Glucose 361 mg/dL (70-100); Total Protein 7.2 g/dL (6.4-8.9)
[2019-06-11 01:04] LABS: HCG Pregnancy < 0.60 mIU/mL
[2019-06-11] MEDS ORDERED: Iodixanol* (CONTRAST) 320 MG/ML 100 ML SDV IV ONE (01:08)
[2019-06-11] MEDS ORDERED: NS 0.9% 1000 ML** 1,000 ML IV ONE (02:13)
[2019-06-11] MEDS ORDERED: Acetaminophen TAB* 325 MG PO ONE (02:13)
--- NOTE | 2019-06-11 02:24 | ED ---
Respiratory - HPI Summary HPI Summary: 39 year old female presents with cough and shortness breath for the past week. She has a history of asthma. She states that she traveled from [place] and there was a lot of dust started upper asthma. States she's had a productive cough since. She's also had diarrhea for the past week. She denies any fevers or chills. she denies any pain or swelling in her calf muscle. She is a smoker. she denies any family history of blood clots. she is not on control. Was sent from urgent care for a PE rule out. She had a negative chest x-ray at urgent care. Patient cannot stop coughing. She states she is given 3 breathing treatments at urgent care which makes her feel worse. - History of Current Complaint Chief Complaint: EDShortnessOfBreath Stated Complaint: SOB PER PT Time Seen by Provider: 06/10/19 23:47 Pain Intensity: 8 - Allergy/Home Medications Allergies/Adverse Reactions: Allergies Allergy/AdvReac Type Severity Reaction Status Date / Time almond Allergy Severe Swelling Verified 06/10/19 23:31 Of Face,Lips,& Throat oxycodone Allergy Intermediate Itching Verified 06/10/19 23:31 PMH/Surg Hx/FS Hx/Imm Hx Endocrine/Hematology History: Reports: Hx Diabetes - pre-diabetic Cardiovascular History: Denies: Hx Hypertension, Hx Myocardial Infarction, Hx Pacemaker/ICD Respiratory History: Reports: Hx Asthma History: Denies: Hx Renal Disease Sensory History: Denies: Hx Cataracts, Hx Legally Blind, Hx Hearing Aid Opthamlomology History: Denies: Hx Cataracts, Hx Legally Blind Psychiatric History: Denies: Hx Panic Disorder - Surgical History Surgery Procedure, Year, and Place: 2004- knee surgery RIGHT. 2009- mass removed in axilla areas bilateral. 2013 tonsils. 2017 TUMMY TUCK surgery in [place]. 08/2017 EMBOLIZATION. 11/2018 breast reduction Infectious Disease History: No Infectious Disease History: Reports: Traveled Outside the [place] in Last 30 Days - Family History Known Family History: Positive: Hypertension, Diabetes Negative: Cardiac Disease, Renal Disease, Respiratory Disease - Social History Alcohol Use: None Hx Substance Use: No Substance Use Type: Reports: None Hx Tobacco Use: No Smoking Status (MU): Never Smoked Tobacco Review of Systems Positive: Fever Negative: Chest Pain Positive: Shortness Of Breath, Cough All Other Systems Reviewed And Are Negative: Yes Physical Exam Triage Information Reviewed: Yes Vital Signs On Initial Exam: Initial Vitals Temp Pulse Resp BP Pulse Ox 98.1 F 124 16 130/89 98 06/10/19 23:29 06/10/19 23:29 06/10/19 23:29 06/10/19 23:29 06/10/19 23:29 Vital Signs Reviewed: Yes Appearance: Positive: Well-Appearing Skin: Positive: Warm, Dry Head/Face: Positive: Normal Head/Face Inspection Eyes: Positive: Normal, EOMI, ALEISHA, Conjunctiva Clear ENT: Positive: Pharynx normal, TMs normal Respiratory/Lung Sounds: Positive: Clear to Auscultation, Breath Sounds Present Cardiovascular: Positive: Normal, RRR Abdomen Description: Positive: Nontender, Soft Bowel Sounds: Positive: Present Musculoskeletal: Positive: Normal Neurological: Positive: Normal Psychiatric: Positive: Normal Procedures - Sedation Patient Received Moderate/Deep Sedation with Procedure: No Diagnostics - Vital Signs Vital Signs Temp Pulse Resp BP Pulse Ox 06/11/19 00:43 21 06/10/19 23:29 98.1 F 124 16 130/89 98 - Laboratory Lab Results: Lab Results 06/11/19 06/11/19 06/11/19 Range/Units 00:30 00:30 00:30 WBC 7.8 (3.5-10.8) 10^3/uL RBC 4.97 H (3.70-4.87) 10^6 /uL Hgb 13.2 (12.0-16.0) g/dL Hct 38 (35-47) % MCV 77 L (80-97) fL MCH 27 (27-31) pg MCHC 35 (31-36) g/dL RDW 15 (10-15) % Plt Count 260 (150-450) 10^3/uL MPV 6.7 L (7.4-10.4) fL Neut % (Auto) 87.4 % Lymph % (Auto) 11.0 % [place] % (Auto) 1.4 % Eos % (Auto) 0.0 % Baso % (Auto) 0.2 % Absolute Neuts (auto) 6.8 (1.5-7.7) 10^3/ul Absolute Lymphs (auto) 0.9 L (1.0-4.8) 10^3/ul Absolute Monos (auto) 0.1 (0-0.8) 10^3/ul Absolute Eos (auto) 0.0 (0-0.6) 10^3/ul Absolute Basos (auto) 0.0 (0-0.2) 10^3/ul Absolute Nucleated RBC 0.0 10^3/ul Nucleated RBC % 0.0 Sodium 135 (135-145) mmol/L Potassium 3.7 (3.5-5.0) mmol/L Chloride 100 L (101-111) mmol/L Carbon Dioxide 19 L (22-32) mmol/L Anion Gap 16 H (2-11) mmol/L BUN 14 (6-24) mg/dL Creatinine 0.88 (0.51-0.95) mg/dL Est GFR ( Amer) 86.6 (>60) Est GFR (Non-Af Amer) 71.5 (>60) BUN/Creatinine Ratio 15.9 (8-20) Glucose 361 H (70-100) mg/dL Lactic Acid 7.1 H* (0.5-2.0) mmol/L Calcium 9.2 (8.6-10.3) mg/dL Magnesium 1.8 L (1.9-2.7) mg/dL Total Bilirubin 0.30 (0.2-1.0) mg/dL AST 17 (13-39) U/L ALT 22 (7-52) U/L Alkaline Phosphatase 66 (34-104) U/L Troponin I 0.01 (<0.03) ng/mL Total Protein 7.2 (6.4-8.9) g/dL Albumin 4.1 (3.2-5.2) g/dL Globulin 3.1 (2-4) g/dL Albumin/Globulin Ratio 1.3 (1-3) Beta HCG, Quant < 0.60 mIU/mL Result Diagrams: 06/11/19 00:30 06/11/19 00:30 Lab Statement: Any lab studies that have been ordered have been reviewed, and results considered in the medical decision making process. - CT cta CT Interpretation Completed By: Radiologist Summary of CT Findings: IMPRESSION: Nondiagnostic study for pulmonary emboli evaluation due to scan and contrast timing. If there is continued clinical concern for PE, followup chest CT in 24 hours or concurrent V/Q scan recommended. - EKG No standard instances Cardiac Rate: Tachycardia EKG Rhythm: Sinus Tachycardia Summary of EKG Findings: sinus tachycardia Disposition - Course Course Of Treatment: 39 year old female presents with cough and shortness breath for the past week. She has a history of asthma. She states that she traveled from [place] and there was a lot of dust started upper asthma. States she's had a productive cough since. She's also had diarrhea for the past week. She denies any fevers or chills. she denies any pain or swelling in her calf muscle. She is a smoker. she denies any family history of blood clots. she is not on control. Was sent from urgent care for a PE rule out. She had a negative chest x-ray at urgent care. Patient cannot stop coughing. She states she is given 3 breathing treatments at urgent care which makes her feel worse. On exam dry cough noted. Lungs clear auscultation. Gave robitussin with codeine and coughing resolved. wbc normal. lactic elevated likely from hyperventilation from coughin. gave fluids. CT was inconclusive for PE. We'll get a d-dimer. d-dimer neg. this is likely a bronchitis. cough and sob resolved with robitussin with codeine so will discharge with such. patient understand and agrees with plan. - Differential Dx - Cardiopulmonary Differential Diagnoses - Cardiopulmonary: Bronchitis, Lower Resp Infection, Pulmonary Embolism - Diagnoses Provider Diagnoses: Bronchitis Discharge ED - Sign-Out/Discharge Documenting (check all that apply): Patient Departure - Discharge Plan Condition: Good Disposition: HOME Prescriptions: guaiFENesin/CODIENE 100mg/10mg [Robitussin AC 100Mg/10Mg in 5 ml] 5 ml PO Q6H PRN #100 ml MDD 20ml PRN Reason: Cough predniSONE 50 mg TAB [Deltasone 50 mg TAB] 50 mg PO DAILY #4 tab Patient Education Materials: Acute Bronchitis (ED) Referrals: Benjy Mercedes MD [Primary Care Provider] - Additional Instructions: Take cough medication 5ml (1 teaspoon) every 6 hours as needed cough Take steroid once a day starting tomorrow Use saline in the nose for nasal congestion, Use humidifier Take Tylenol or ibuprofen for pain every 6 hours follow up with primary within 5 days Return to ED if develop any new or worsening symptoms - Billing Disposition and Condition Condition: GOOD Disposition: Home
[2019-06-11 03:55] VITALS: BP 132/70
== END 2019-06-11 03:54 | disposition home or self-care (01) ==
LOC: ED 23:24
DX: J45.909 Unspecified asthma, uncomplicated (principal); R00.0 Tachycardia, unspecified; R73.03 Prediabetes; Z88.5 Allergy status to narcotic agent; Z91.018 Allergy to other foods
CPT/HCPCS: 36415; 71275; 80053; 83605; 83735; 84484; 84702; 85025; 85379; 87040; 93005; 96361; 96365; 96375; 99283; A9270-GY; J1885; J3475; Q9967